=== PATIENT | male | born 1995 | race Two or more races ===

== ENCOUNTER 2018-05-07 11:24 | Emergency (ER) | payer OTHER ==
[~2018-05-07] VITALS: Ht 175.3 cm; Wt 81.4 kg
[2018-05-07 11:36] VITALS: BP 154/117
--- NOTE | 2018-05-07 11:41 | ED.ADGEN ---
Past History Past Medical History: No Pertinent History Past Surgical History: No Surgical History Smoking: Non-smoker Alcohol Use: None Drug Use: None Adult General Chief Complaint Chief Complaint Right Facial Trauma HPI HPI Patient was skateboarding yesterday when he fell onto his right jaw with injury. He noted swelling and difficulty opening his mouth since then. He denied any loss of consciousness or neck pain, though he was dazed. He's had no vomiting or difficulty breathing. He can't chew secondary to right jaw [place] and swelling. He was not wearing a helmet. Review of Systems Review of Systems Constitutional: Denies fever or chills Eyes: Denies change in visual acuity, redness, or eye pain HENT: Denies nasal congestion or sore throat, with right jaw pain and swelling after trauma Respiratory: Denies cough or shortness of breath Cardiovascular: Denies chest pain or palpitations GI: Denies abdominal pain, nausea, vomiting, bloody stools or diarrhea : Denies dysuria or hematuria Musculoskeletal: Denies back pain or joint pain Integument: Denies rash or skin lesions Neurologic: Denies headache, focal weakness or sensory changes Endocrine: Denies polyuria or polydipsia All other systems were reviewed and found to be within normal limits, except as documented in this note. Current Medications Current Medications Current Medications Medications (Trade) Dose Ordered Sig/Ava Start Time Stop Time Status Last Admin Dose Admin Amoxicillin/ Clavulanate Potassium (Augmentin 875/ 125mg) 1 tab 1X ONCE 05/07/18 13:00 05/07/18 13:04 DC 05/07/18 13:02 1 TAB Ibuprofen (Motrin) 800 mg 1X STAT 05/07/18 12:50 05/07/18 13:04 DC 05/07/18 13:03 800 MG Allergies Allergies Allergies Coded Allergies Type Severity Reaction Last Updated Verified No Known Drug Allergies 05/07/18 No Physical Exam Physical Exam Constitutional: Well developed, well nourished, no acute distress, non-toxic appearance. HENT: Normocephalic, with right jaw swelling, bilateral external ears normal, TMs normal bilaterally, oropharynx moist, no oral exudates, nose normal. Marked right jaw swelling and tenderness to palpation along the body of the mandible. Right-sided dentition is malaligned with his second molar medially displaced relative to his 3rd molar. No mid-face instability. No loose teeth noted. Eyes: PERRLA, EOMI, conjunctiva normal, no discharge. Neck: Normal range of motion, no tenderness, supple, no stridor. Cardiovascular:Heart rate regular rhythm, no murmur Lungs & Thorax: Bilateral breath sounds clear to auscultation Abdomen: Bowel sounds normal, soft, no tenderness, no masses, no pulsatile masses. Skin: Warm, dry, no erythema, no rash. Back: No tenderness, no CVA tenderness. Extremities: No tenderness, no cyanosis, no clubbing, ROM intact, no edema. Neurologic: Alert and oriented X 3, normal motor function, normal sensory function, no focal deficits noted. Psychologic: Affect normal, judgement normal, mood normal. Current Patient Data Vital Signs Vital Signs Date Time Temp Pulse Resp B/P (MAP) Pulse Ox O2 Delivery O2 Flow Rate FiO2 05/07/18 11:36 98.7 75 16 97 Room Air EKG EKG [] Radiology/Procedures Radiology/[place] [address] IMAGING REPORT Signed PATIENT: LEAH BENAVIDES ACCOUNT: [id number] : 1995 LOCATION: ER AGE: 23 SEX: M EXAM STATUS: REG ER ORD. PHYSICIAN: JOHN CHOWDHURY MD REASON: right jaw swelling PROCEDURE: CT MAXILLOFACIAL WO CONTRAST CT maxillofacial without contrast. HISTORY: Fell on skateboard, hit right side of jaw on ground, right-sided jaw pain and swelling CT scan of the facial bones was done without contrast. There is marked soft tissue swelling on the right. There is complete opacification of the right maxillary sinus. Frontal, ethmoid and sphenoid sinuses are clear. There is a fracture at the angle of the mandible on the right. No other mandible fracture is noted. There is a nasal fracture. Visualized portion of the upper cervical spine is unremarkable. There is evidence of fractures involving the maxilla on the right without displacement. There is no fracture of the right zygomatic arch. IMPRESSION: 1. Nondisplaced fracture the right maxilla with opacification the right maxillary sinus. 2. fracture through the angle the mandible on the right, no other mandible fracture is noted. 3. Nasal fracture. PQRS Compliance Statement: One or more of the following individualized dose reduction techniques were utilized for this examination: 1. Automated exposure control 2. Adjustment of the mA and/or kV according to patient size 3. Use of iterative reconstruction technique Electronically signed by: Fam Ferreira MD (05/07/2018 12:22 PM) [facility] DICTATED AND SIGNED BY: FAM FERREIRA MD DATE: 05/07/18 6064 CC: ARISTIDES MACIEL PA-C; JOHN CHOWDHURY MD ~ Course & Med Decision Making Course & Med Decision Making Emergency Department Course: Right jaw swelling post trauma DDx- fracture, dislocation, contusion, hematoma Patient was stable in the ED. Maxillofacial CT scan showed mandibular fracture, right maxillary and nasal fracture. Patient was given Augmentin. Case discussed with Oral surgery who will see the patient tomorrow. Patient was given Oral surgery and ENT follow-up with prescriptions for Augmentin, [place] and Motrin. Patient advised to return to the ED if he develops difficulty breathing or swallowing, fevers, worse swelling or pain. 13:[address] Miguel Bacon who will follow-up the patient tomorrow for fixation of his mandibular fracture Final Impression Final Impression Clinical impression Right mandibular fracture Right maxillary fracture Right nasal fracture Dragon Disclaimer Dragon Disclaimer This electronic medical record was generated, in whole or in part, using a voice recognition dictation system. Departure Departure: Impression: Primary Impression: Mandibular fracture, closed Qualified Codes: S02.601A - Fracture of unspecified part of body of right mandible, initial encounter for closed fracture Additional Impressions: Maxillary fracture Qualified Codes: S02.40CA - Maxillary fracture, right side, initial encounter for closed fracture Nasal fracture Qualified Codes: S02.2XXA - Fracture of nasal bones, initial encounter for closed fracture Disposition: HOME, SELF-CARE Admitting Physician: Liz Ordoñez Condition: STABLE Patient Instructions: Mandibular Fracture, Nasal Fracture Additional Instructions: Follow-up with Dr. Miguel Bacon Oral Maxillofacial surgery tomorrow for further evaluation and with Dr. Joleen Miramontes ENT tomorrow for further evaluation [facility] [address] [place] [address] Dr. Joleen Miramontes Address: [address] [place] [address] [address], [place] [address] If you develop worse pain, difficulty breathing, fevers, shortness of breath, difficulty swallowing return to the emergency department immediately Scripts Amoxicillin/Potassium Clav (AUGMENTIN 875-125 TABLET) 1 Each Tablet 1 TAB PO BID, #20 TAB Prov: JOHN CHOWDHURY MD 05/07/18 Hydrocodone Bit/Acetaminophen (NORCO 5-325 TABLET) 1 Each Tablet 1 TAB PO PRN Q6HRS PRN for PAIN for 5 Days, #20 TAB 0 Refills Prov: JOHN CHOWDHURY MD 05/07/18 Ibuprofen (IBUPROFEN) 800 Mg Tablet 800 MG PO TIDWMEALHC for 5 Days, #15 TAB Prov: JOHN CHOWDHURY MD 05/07/18 JOHN CHOWDHURY MD May 07, 2018 11:41
--- NOTE | 2018-05-07 12:26 | RAD ---
CT maxillofacial without contrast. HISTORY: Fell on skateboard, hit right side of jaw on ground, right-sided jaw pain and swelling CT scan of the facial bones was done without contrast. There is marked soft tissue swelling on the right. There is complete opacification of the right maxillary sinus. Frontal, ethmoid and sphenoid sinuses are clear. There is a fracture at the angle of the mandible on the right. No other mandible fracture is noted. There is a nasal fracture. Visualized portion of the upper cervical spine is unremarkable. There is evidence of fractures involving the maxilla on the right without displacement. There is no fracture of the right zygomatic arch. IMPRESSION: 1. Nondisplaced fracture the right maxilla with opacification the right maxillary sinus. 2. fracture through the angle the mandible on the right, no other mandible fracture is noted. 3. Nasal fracture. PQRS Compliance Statement: One or more of the following individualized dose reduction techniques were utilized for this examination: 1. Automated exposure control 2. Adjustment of the mA and/or kV according to patient size 3. Use of iterative reconstruction technique Electronically signed by: Fam Ferreira MD (05/07/2018 12:22 PM) [facility]
[2018-05-07] MEDS ORDERED: IBUPROFEN 800 MG TABLET. PO STA (12:50)
[2018-05-07] MEDS ORDERED: AMOXICILLIN/K CLAV 875/125MG TABLET. PO ONE (13:00)
[2018-05-07] MEDS ORDERED: IBUP800T19 PO (13:18)
[2018-05-07] MEDS ORDERED: AMOX1TAB61 PO (13:18)
[2018-05-07] MEDS ORDERED: HYDR-971 PO (13:18)
== END 2018-05-07 13:36 | disposition home or self-care (01) ==
LOC: ER 11:24
DX: S02.651A Fracture of angle of right mandible, initial encounter for closed fracture (principal); S02.40CA Maxillary fracture, right side, initial encounter for closed fracture; S02.2XXA Fracture of nasal bones, initial encounter for closed fracture; V00.131A Fall from skateboard, initial encounter; Y93.51 Activity, roller skating (inline) and skateboarding; Y92.89 Other specified places as the place of occurrence of the external cause; Y99.8 Other external cause status
CPT/HCPCS: 70486; 99284-25